=== PATIENT | male | born 1960 | race Caucasian/White ===

== ENCOUNTER → 2020-03-08 | Outpatient (CLI) | payer BC ==
[~2020-03-08] MED LIST: ACET-2065 PO; AMOX-291 PO; BUPR150T73 PO; BUSP5TAB2 PO; CHOL10003 PO; DOCU-180 PO; FINA5TAB4 PO; HYDR-826 PO; LOSA100T14 PO; OMEP-110 PO; SERT100T32 PO; TEST200V3 IM; Vitamin B12 PO; prevagin PO
[2020-03-08 15:05] LABS: BASOPHILS % (AUTO) 1 % (0-1); EOSINOPHILS % (AUTO) 1 % (1-7); LYMPHOCYTES % (AUTO) 27 % (22-44); MEAN CORPUSCULAR HEMOGLOBIN 29.5 pg (27.5-34.5); MEAN CORPUSCULAR HGB CONC 33.3 g/dL (33.2-36.2); MONOCYTES % (AUTO) 8 % (2-9); NEUTROPHILS % (AUTO) 64 % (42-75); PLATELET COUNT 203 x10^3/uL (130-400); RED BLOOD COUNT 5.37 x10^6/uL (4.38-5.82); RED CELL DISTRIBUTION WIDTH 14.8 % (9.4-14.8)
[2020-03-08 15:09] LABS: MD NO
[2020-03-08 15:15] LABS: ALBUMIN 3.7 g/dL (3.4-5.0); ANION GAP 6 mmol/L (5-15); CHLORIDE 106 mmol/L (98-107)
[2020-03-08 15:18] LABS: ALANINE AMINOTRANSFERASE 28 U/L (12-78); ALKALINE PHOSPHATASE 95 U/L (45-117); BILIRUBIN,TOTAL 0.5 mg/dL (0.2-1.0); CREATININE 1.12 mg/dL (0.7-1.3); TOTAL PROTEIN 7.7 g/dL (6.4-8.2)
== END | disposition home or self-care (01) ==
LOC: STAR 14:09
PROVIDERS: ATTEND Surgery
DX: Z01.812 Encounter for preprocedural laboratory examination (principal); K64.8 Other hemorrhoids; Z20.828 Contact with and (suspected) exposure to other viral communicable diseases
CPT/HCPCS: 36415; 80053; 85025; 87635

== ENCOUNTER 2020-03-13 09:38 | Day surgery (SDC) | payer BC ==
[~2020-03-13] VITALS: Ht 180.3 cm; Wt 120.3 kg
[2020-03-13] MEDS ORDERED: TAMS-11 PO (10:31)
[2020-03-13 10:36] VITALS: BP 128/83
[2020-03-13] MEDS ORDERED: BUPIVACAINE LIPOSOME/PF 10ML INFIL ONE ×2 (10:45→11:00)
[2020-03-13] MEDS ORDERED: CHLORHEXIDINE 15 ML UDC MM ONE (11:00)
[2020-03-13] MEDS ORDERED: LACTATED RINGERS 1,000 ML IV SCH (11:00)
[2020-03-13] MEDS ORDERED: PROPOFOL 10 MG/ML, 20ML ONE (11:01)
[2020-03-13] MEDS ORDERED: SUCCINYLCHOLINE 20 MG/ML, 10ML ONE (11:01)
[2020-03-13] MEDS ORDERED: DEXAMETHASONE 4 MG/ML, 1ML ONE (11:01)
[2020-03-13] MEDS ORDERED: ONDANSETRON 2MG/ML, 2ML ONE (11:01)
[2020-03-13] MEDS ORDERED: ROCURONIUM 10MG/ML,5ML ONE (11:01)
[2020-03-13] MEDS ORDERED: FENTANYL PF 250 MCG/5ML ONE (11:20)
[2020-03-13] MEDS ORDERED: OXYcodone 5 MG/5 ML ORAL.SOL UDC ONE (11:53)
[2020-03-13] MEDS ORDERED: ACETAMINOPHEN 650 MG/20.3 ML UDC ONE (11:53)
[2020-03-13] MEDS ORDERED: FENTANYL PF 100 MCG/2ML ONE (11:53)
[2020-03-13] MEDS ORDERED: ACETAMINOPHEN 325 MG TABLET PO PRN (12:00)
[2020-03-13] MEDS ORDERED: KETOROLAC 30 MG/1 ML IV PRN (12:00)
[2020-03-13] MEDS ORDERED: METHOCARBAMOL 1,000 MG in DEXTROSE 5% 100 ML IV PRN (12:00)
[2020-03-13] MEDS ORDERED: PROMETHAZINE 25 MG/ML, 1ML ONE (12:00)
[2020-03-13] MEDS ORDERED: ONDANSETRON 2MG/ML, 2ML IVPush PRN (12:00)
[2020-03-13] MEDS ORDERED: FENTANYL PF 100 MCG/2ML IV PRN (12:00)
[2020-03-13] MEDS ORDERED: EPHEDRINE 50 MG/ML, 1ML IVPush PRN (12:00)
[2020-03-13] MEDS ORDERED: MEPERIDINE/PF 25MG/0.5ML IVPush PRN (12:00)
[2020-03-13] MEDS ORDERED: OXYcodone 5 MG/5 ML ORAL.SOL UDC PO PRN (12:00)
[2020-03-13] MEDS ORDERED: hydrALAzine 20 MG/ML, 1ML IV PRN (12:00)
[2020-03-13] MEDS ORDERED: LABETALOL 5MG/ML, 20ML IV PRN (12:00)
[2020-03-13] MEDS ORDERED: LORazepam 2 MG/ML, 1ML IVPush PRN (12:00)
[2020-03-13] MEDS ORDERED: HYDROmorphone 1 MG/ML, 1ML INJ IVPush PRN (12:00)
[2020-03-13] MEDS: PROMETHAZINE 25 MG/ML, 1ML IVPush PRN ×2 (12:02→12:26)
== END 2020-03-13 14:50 | disposition home or self-care (01) ==
LOC: OUT 09:38
PROVIDERS: ATTEND Surgery
DX: K64.2 Third degree hemorrhoids (principal); K64.4 Residual hemorrhoidal skin tags; I10 Essential (primary) hypertension; Z79.899 Other long term (current) drug therapy
CPT/HCPCS: 46260; 88304; J0330; J1100; J1885; J2405; J2550; J2704; J3010; J7120